=== PATIENT | female | born 1975 | race Caucasian/White ===

== ENCOUNTER 2017-06-22 04:45 | Emergency (ER) | payer BC, OTHER ==
[~2017-06-22 04:45] MED LIST: IBUP400T20 PO
[2017-06-22 04:46] VITALS: BP 122/85; PULSE 74; RESP 16; TEMP 98.4; O2SAT 100
[2017-06-22] MEDS ORDERED: SODIUM CHLORIDE 0.9% FLUSH 10 ML FLUSH IV FLUSH PRN (05:30)
[2017-06-22 05:58] LABS: AUTOMATED NEUTROPHIL # 2.7 TH/MM3 (1.8-7.7); BASOPHIL % 0.6 % (0.0-2.0); EOSINOPHIL # 0.1 TH/MM3 (0-0.4); EOSINOPHIL % 3.3 % (0.0-4.0); HEMATOCRIT 40.6 % (35.0-46.0); HEMOGLOBIN 13.7 GM/DL (11.6-15.3); LYMPH % 24.9 % (9.0-44.0); LYMPHOCYTE # 1.1 TH/MM3 (1.0-4.8); MEAN CELL VOLUME 90.6 FL (80.0-100.0); MEAN CORPUSCULAR HEMOGLOBIN 30.5 PG (27.0-34.0); MEAN CORPUSCULAR HGB CONC 33.7 % (32.0-36.0); MEAN PLATELET VOLUME 9.4 FL (7.0-11.0); MONO % 8.9 % (0.0-8.0); MONOCYTE # 0.4 TH/MM3 (0-0.9); NEUT % 62.3 % (16.0-70.0); PLATELET COUNT 196 TH/MM3 (150-450); RED BLOOD COUNT 4.48 MIL/MM3 (4.00-5.30); RED CELL DISTRIBUTION WIDTH 12.7 % (11.6-17.2); WHITE BLOOD COUNT 4.4 TH/MM3 (4.0-11.0)
[2017-06-22 06:22] LABS: ALBUMIN 3.2 GM/DL (3.4-5.0); AST (GOT) 17 U/L (15-37); BICARBONATE 27.5 MEQ/L (21.0-32.0); BLOOD UREA NITROGEN 8 MG/DL (7-18); CALCIUM 8.5 MG/DL (8.5-10.1); CHLORIDE 105 MEQ/L (98-107); CREATININE 0.58 MG/DL (0.50-1.00); GLOMERULAR FILTRATION RATE 113 ML/MIN (>89); GLUCOSE,RANDOM 98 MG/DL (74-106); SODIUM (NA) 139 MEQ/L (136-145)
[2017-06-22 06:23] LABS: ALT (GPT) 21 U/L (10-53)
[2017-06-22 06:25] LABS: ALKALINE PHOSPHATASE 93 U/L (45-117); TOTAL BILIRUBIN ADULT 0.2 MG/DL (0.2-1.0); TOTAL PROTEIN 6.6 GM/DL (6.4-8.2)
[2017-06-22 06:30] LABS: AMORPHOUS SEDIMENT, URINE FEW; BILIRUBIN, URINE NEG (NEG); BLOOD, URINE TRACE (NEG); GLUCOSE,URINE NEG (NEG); KETONE, URINE NEG (NEG); MUCUS URINE FEW /lpf (OCC); NITRITE,URINE NEG (NEG); SQUAMOUS EPITHELIAL CELL URINE 3 /hpf (0-5); URINE COLOR YELLOW (YELLW/STRAW); URINE LEUKOCYTE ESTERASE NEG (NEG)
--- NOTE | 2017-06-22 06:33 | PD ---
HPI Chief Complaint: Abdominal Pain Time Seen by Provider: 05:10 Travel History International Travel<30 days: No Contact w/Intl Traveler<30days: No Traveled to known affect area: No History of Present Illness HPI Patient is a 42-year-old female presents emergency department with right lower quadrant abdominal pain onset in the middle the night. Patient has a history of bilateral ovarian cyst endometriosis scar tissue buildup from there. States symptoms are moderate, right lower quadrant, no radiation, so she was mild nausea without vomiting PFSH Past Medical History Autoimmune Disease: Yes (LUPUS) Cancer: No Cardiovascular Problems: No Diabetes: No Diminished Hearing: No Endocrine: No Genitourinary: No Hepatitis: No Hiatal Hernia: No Immune Disorder: Yes (skin lupus) Musculoskeletal: No Neurologic: No Psychiatric: No Reproductive: Yes (ovarian cyst graciela) Respiratory: No Thyroid Disease: No ?: Not : 4 Para: 2 Miscarriage: 1 Past Surgical History AICD: No Body Medical Devices: saline breast implants Joint Replacement: No Oral Surgery: Yes (t and a) Pacemaker: No Thoracic Surgery: Yes (breast augmentation) Tonsillectomy: Yes Other Surgery: Yes (BREAST AUGMENTATION) Social History Alcohol Use: No Tobacco Use: No Substance Use: No Allergies-Medications (Allergen,Severity, Reaction): Coded Allergies: erythromycin base (Unverified Allergy, Severe, 06/22/17) hives Reported Meds & Prescriptions Reported Meds & Active Scripts Active Metronidazole 500 Mg Tab 500 Mg PO BID 7 Days Tylenol (Acetaminophen) 325 Mg Tab 650 Mg PO Q6H PRN Reported Motrin (Ibuprofen) 400 Mg Tab 400 Mg PO Q6 3 Days Review of Systems Except as stated in HPI: all other systems reviewed are Neg Physical Exam Narrative GENERAL: Well-developed well-nourished in no obvious distress SKIN: Focused skin assessment warm/dry. HEAD: Atraumatic. Normocephalic. EYES: Pupils equal and round. No scleral icterus. No injection or drainage. ENT: No nasal bleeding or discharge. Mucous membranes pink and moist. NECK: Trachea midline. No JVD. CARDIOVASCULAR: Regular rate and rhythm. No murmur appreciated. RESPIRATORY: No accessory muscle use. Clear to auscultation. Breath sounds equal bilaterally. GASTROINTESTINAL: Abdomen soft, non-tender, nondistended. Hepatic and splenic margins not palpable. Very soft and no tenderness in the right lower quadrant, no CVA tenderness GENITOURINARY: Exam performed with female nurse licsw present at all times, there is fairly copious white discharge consistent with bacterial vaginosis, no cervical motion tenderness, no bimanual tenderness, no pelvic mass felt. No vaginal mass internally or on the external genitalia. MUSCULOSKELETAL: No obvious deformities. No clubbing. No cyanosis. No edema. NEUROLOGICAL: Awake and alert. No obvious cranial nerve deficits. Motor grossly within normal limits. Normal speech. PSYCHIATRIC: Appropriate mood and affect; insight and judgment normal. Data Data Last Documented VS Orders Orders Urinalysis - C+S If Indicated (06/22/17 04:52) Ed Urine Pregnancytest Poc (06/22/17 04:52) Complete Blood Count With Diff (06/22/17 05:26) Comprehensive Metabolic Panel (06/22/17 05:26) Lipase (06/22/17 05:26) Iv Access Insert/Monitor (06/22/17 05:26) Ecg Monitoring (06/22/17 05:26) Oximetry (06/22/17 05:26) Sodium Chloride 0.9% Flush (Ns Flush) (06/22/17 05:30) Wet Prep Profile (06/22/17 06:31) Gc And Chlamydia Pcr (06/22/17 06:31) Ketorolac Inj (Toradol Inj) (06/22/17 06:45) Us Pelvis Comp W Doppler (06/22/17 ) Ed Discharge Order (06/22/17 08:16) Labs Laboratory Tests Test 06/22/17 05:33 06/22/17 05:39 06/22/17 06:48 Urine Color YELLOW Urine Turbidity HAZY Urine pH 8.0 Urine Specific [place] 1.021 Urine Protein NEG mg/dL Urine Glucose (UA) NEG mg/dL Urine Ketones NEG mg/dL Urine Occult Blood TRACE Urine Nitrite NEG Urine Bilirubin NEG Urine Urobilinogen LESS THAN 2.0 MG/DL Urine Leukocyte Esterase NEG Urine RBC 7 /hpf Urine WBC LESS THAN 1 /hpf Urine Squamous Epithelial Cells 3 /hpf Urine Amorphous Sediment FEW Urine Mucus FEW /lpf Microscopic Urinalysis Comment CULT NOT INDICATED White Blood Count 4.4 TH/MM3 Red Blood Count 4.48 MIL/MM3 Hemoglobin 13.7 GM/DL Hematocrit 40.6 % Mean Corpuscular Volume 90.6 FL Mean Corpuscular Hemoglobin 30.5 PG Mean Corpuscular Hemoglobin Concent 33.7 % Red Cell Distribution Width 12.7 % Platelet Count 196 TH/MM3 Mean Platelet Volume 9.4 FL Neutrophils (%) (Auto) 62.3 % Lymphocytes (%) (Auto) 24.9 % Monocytes (%) (Auto) 8.9 % Eosinophils (%) (Auto) 3.3 % Basophils (%) (Auto) 0.6 % Neutrophils # (Auto) 2.7 TH/MM3 Lymphocytes # (Auto) 1.1 TH/MM3 Monocytes # (Auto) 0.4 TH/MM3 Eosinophils # (Auto) 0.1 TH/MM3 Basophils # (Auto) 0.0 TH/MM3 CBC Comment DIFF FINAL Differential Comment Blood Urea Nitrogen 8 MG/DL Creatinine 0.58 MG/DL Random Glucose 98 MG/DL Total Protein 6.6 GM/DL Albumin 3.2 GM/DL Calcium Level 8.5 MG/DL Alkaline Phosphatase 93 U/L Aspartate Amino Transf (AST/SGOT) 17 U/L Alanine Aminotransferase (ALT/SGPT) 21 U/L Total Bilirubin 0.2 MG/DL Sodium Level 139 MEQ/L Potassium Level 4.2 MEQ/L Chloride Level 105 MEQ/L Carbon Dioxide Level 27.5 MEQ/L Anion Gap 7 MEQ/L Estimat Glomerular Filtration Rate 113 ML/MIN Lipase 127 U/L Clue Cells (Wet Prep) NONE SEEN Vaginal Trichomonas (Wet Prep) NONE SEEN Vaginal Yeast (Wet Prep) NONE SEEN Chlamydia trachomatis DNA (PCR) NOT DETECTED Neisseria gonorrhoeae DNA (PCR) NOT DETECTED MDM Medical Decision Making Medical Screen Exam Complete: Yes Emergency Medical Condition: Yes Differential Diagnosis BV, CV, STD, ovarian cyst per Narrative Course Patient room to the emergency department, appears fairly comfortable she was given Toradol. Pelvic exam consistent with bacterial vaginosis, she is accompanied by her and mother, she adamantly declines a possibility for STDs. Cervical swab was sent and will follow it up. Patient with a history of endometriosis and bilateral ovarian cyst concern remains for storage and, pelvic ultrasound has been ordered, discussed with Dr. Strange to follow-up pelvic ultrasound and wet prep and disposition the patient appropriately. Diagnosis Primary Impression: Bacterial vaginosis Med/Other Pt SpecificInfo: Prescription(s) given Scripts Metronidazole (Metronidazole) 500 Mg Tab 500 MG PO BID for Infection for 7 Days, #14 TAB 0 Refills Prov: Jojo Strange DO 06/22/17 Acetaminophen (Tylenol) 325 Mg Tab 650 MG PO Q6H Y for PAIN SCALE 1 TO 4, #20 TAB 0 Refills Prov: Jojo Strange DO 06/22/17 Disposition: 01 DISCHARGE HOME Condition: Stable Beny Fair MD Jun 22, 2017 06:33
[2017-06-22] MEDS ORDERED: KETOROLAC TROMETHAMINE 30 MG/ML (IVP) VIAL IV PUSH ONE (06:45)
[2017-06-22] MEDS ORDERED: METR-1 PO (06:51)
--- NOTE | 2017-06-22 07:35 | PD ---
Physical Exam Narrative Received sign out from previous team to follow up US pelvis and reevaluate. Please see prior provider's note for further details. 42yo F with history of endometriosis and ovarian cysts here with right lower abdominal pain. Said it was sharp and now had eased off. Had some nausea but no vomiting. Denies any fever. Had similar pain with her ovarian cyst before. Labs reviewed, no leukocytosis. H/H normal. CMP unremarkable. Lipase normal. UA showed less than 1. Culture not indicated. Pelvic exam showed copious white vaginal discharge. Urine negative. Pt was given toradol for pain. Pt evaluated at bedside and currently has no nausea or abdominal pain. Abdomen is soft, NT/ND. US pelvis showed thickened endometrium with nonspecific area of decreased echogenicity measuring 1.6cm. This is likely benign. Recommend follow up study. Normal flow of ovaries. Bilateral ovarian cysts. Echogenic lesion right ovary measures 3.2cm nonspecific but could represent endometrioma or hemorrhagic cyst. Informed pt of the results and to follow up with [employer]. Pt currently has no pain or nausea. Wet prep negative. Return precautions given. Data Data Last Documented VS Vital Signs Date Time Temp Pulse Resp B/P (MAP) Pulse Ox O2 Delivery O2 Flow Rate FiO2 06/22/17 04:46 98.4 74 16 122/85 (97) 100 Room Air Orders Orders Urinalysis - C+S If Indicated (06/22/17 04:52) Ed Urine Pregnancytest Poc (06/22/17 04:52) Complete Blood Count With Diff (06/22/17 05:26) Comprehensive Metabolic Panel (06/22/17 05:26) Lipase (06/22/17 05:26) Iv Access Insert/Monitor (06/22/17 05:26) Ecg Monitoring (06/22/17 05:26) Oximetry (06/22/17 05:26) Sodium Chloride 0.9% Flush (Ns Flush) (06/22/17 05:30) Wet Prep Profile (06/22/17 06:31) Gc And Chlamydia Pcr (06/22/17 06:31) Ketorolac Inj (Toradol Inj) (06/22/17 06:45) Us Pelvis Comp W Doppler (06/22/17 ) Ed Discharge Order (06/22/17 08:16) Labs Laboratory Tests Test 2/3/18 05:33 06/22/17 05:39 06/22/17 06:48 Urine Color YELLOW Urine Turbidity HAZY Urine pH 8.0 Urine Specific [place] 1.021 Urine Protein NEG mg/dL Urine Glucose (UA) NEG mg/dL Urine Ketones NEG mg/dL Urine Occult Blood TRACE Urine Nitrite NEG Urine Bilirubin NEG Urine Urobilinogen LESS THAN 2.0 MG/DL Urine Leukocyte Esterase NEG Urine RBC 7 /hpf Urine WBC LESS THAN 1 /hpf Urine Squamous Epithelial Cells 3 /hpf Urine Amorphous Sediment FEW Urine Mucus FEW /lpf Microscopic Urinalysis Comment CULT NOT INDICATED White Blood Count 4.4 TH/MM3 Red Blood Count 4.48 MIL/MM3 Hemoglobin 13.7 GM/DL Hematocrit 40.6 % Mean Corpuscular Volume 90.6 FL Mean Corpuscular Hemoglobin 30.5 PG Mean Corpuscular Hemoglobin Concent 33.7 % Red Cell Distribution Width 12.7 % Platelet Count 196 TH/MM3 Mean Platelet Volume 9.4 FL Neutrophils (%) (Auto) 62.3 % Lymphocytes (%) (Auto) 24.9 % Monocytes (%) (Auto) 8.9 % Eosinophils (%) (Auto) 3.3 % Basophils (%) (Auto) 0.6 % Neutrophils # (Auto) 2.7 TH/MM3 Lymphocytes # (Auto) 1.1 TH/MM3 Monocytes # (Auto) 0.4 TH/MM3 Eosinophils # (Auto) 0.1 TH/MM3 Basophils # (Auto) 0.0 TH/MM3 CBC Comment DIFF FINAL Differential Comment Blood Urea Nitrogen 8 MG/DL Creatinine 0.58 MG/DL Random Glucose 98 MG/DL Total Protein 6.6 GM/DL Albumin 3.2 GM/DL Calcium Level 8.5 MG/DL Alkaline Phosphatase 93 U/L Aspartate Amino Transf (AST/SGOT) 17 U/L Alanine Aminotransferase (ALT/SGPT) 21 U/L Total Bilirubin 0.2 MG/DL Sodium Level 139 MEQ/L Potassium Level 4.2 MEQ/L Chloride Level 105 MEQ/L Carbon Dioxide Level 27.5 MEQ/L Anion Gap 7 MEQ/L Estimat Glomerular Filtration Rate 113 ML/MIN Lipase 127 U/L Clue Cells (Wet Prep) NONE SEEN Vaginal Trichomonas (Wet Prep) NONE SEEN Vaginal Yeast (Wet Prep) NONE SEEN MDM Supervised Visit with YOHAN: No Diagnosis Primary Impression: Ovarian cyst Qualified Codes: N83.201 - Unspecified ovarian cyst, right side; N83.202 - Unspecified ovarian cyst, left side Patient Instructions: General Instructions, Moderate Sedation in Children (ED) Departure Forms: Tests/Procedures Additional Instruction: Please follow up with your contract admin regarding your ultrasound findings today. Return to the ED if symptoms worsen. Med/Other Pt SpecificInfo: Prescription(s) given Scripts Metronidazole (Metronidazole) 500 Mg Tab 500 MG PO BID for Infection for 7 Days, #14 TAB 0 Refills Prov: Jojo Strange DO 06/22/17 Acetaminophen (Tylenol) 325 Mg Tab 650 MG PO Q6H Y for PAIN SCALE 1 TO 4, #20 TAB 0 Refills Prov: Jojo Strange DO 06/22/17 Disposition: 01 DISCHARGE HOME Condition: Stable Jojo Strange DO Jun 22, 2017 07:35
--- NOTE | 2017-06-22 07:49 | RADRPT ---
EXAM DATE/TIME: 06/22/2017 07:20 [facility] COMPARISON: No previous studies available for comparison. INDICATIONS : Right sided pelvic pain. MEDICAL HISTORY : Lupus. Endometriosis. Ovarian cysts. SURGICAL HISTORY : Tonsillectomy. Adenoidectomy. Breast augmentation. ENCOUNTER: Initial ACUITY: 1 day PAIN SCORE: 10/10 LOCATION: Bilateral pelvis MEASUREMENTS: UTERUS: 9.4 x 6.5 x 4.6 cm ENDOMETRIAL STRIPE: 20 mm RIGHT OVARY: 5.2 x 3.9 x 3.2 cm LEFT OVARY: 3.9 x 2.8 x 3.1 cm FINDINGS: UTERUS: endometrium is thickened measuring 2.2 cm. Area of decreased echogenicity within the end ometrium measuring 16 x 16 x 16 mm. RIGHT OVARY: Simple cyst measures 32 x 21 x 27 mm. Echogenic lesion measures 30 x 25 x 29 mm. Normal flow. LEFT OVARY: Slightly complex cystic lesion measures 20 x 19 x 18 mm. Normal flow. MISCELLANEOUS: No free fluid. CONCLUSION: 1. Thickened endometrium with nonspecific area of decreased echogenicity measuring 1.6 cm. This is li rita benign. Followup study recommended in 4-6 weeks. 2. Normal flow to the ovaries. 3. Bilateral ovarian cysts. 4. Echogenic lesion right ovary measures 3.2 cm nonspecific but could represent endometrioma or hemor rhagic cyst. Mauro Hernandez MD on June 22, 2017 at 7:43 Board Certified Radiologist. This report was verified electronically.
[2017-06-22] MEDS ORDERED: TYLE325T PO (08:07)
[2017-06-22] MEDS ORDERED: METR1TAB76 PO (08:19)
== END 2017-06-22 08:24 | disposition home or self-care (01) ==
LOC: NEPE 04:45
DX: N76.0 Acute vaginitis (principal); N83.201 Unspecified ovarian cyst, right side; N83.202 Unspecified ovarian cyst, left side; N80.9 Endometriosis, unspecified; M32.9 Systemic lupus erythematosus, unspecified
CPT/HCPCS: 76856; 80053; 81001; 83690; 84703; 85025; 87210; 87491; 87591; 93975; 96374; 99284; J1885